=== PATIENT | female | born 1965 | race Caucasian/White ===

== ENCOUNTER 2019-10-26 15:33 | Emergency (ER) | payer SELFPAY ==
[2019-10-26 15:44] VITALS: BP 142/77; PULSE 74; RESP 16; TEMP 37.1; O2SAT 96; BMI 43.0
--- NOTE | 2019-10-26 16:04 | ED_ITS ---
HPI - Ear Problem General Chief complaint: Ear Stated complaint: swelling right side of her neck and jaw Time Seen by Provider: 10/26/19 15:57 Source: patient and family () Mode of arrival: Ambulatory Limitations: no limitations History of Present Illness HPI Narrative: This is a 54-year-old female comes emergency department complaint of swelling of the right side of her jaw just below in the neck region. Patient states that she has always noticed she has a little bit of a sharp pain when she eats something sour. She thought that was typical but found out recently that it is not. Last 24 hours she has noted pain with chewing and eating. She states last night was pretty intense today has been mild. Today her and her both noticed swelling of the cheek area and neck. Her states it looked mostly like the lower cheek just above the mandible. She feels like it is a little bit behind and below. She states no fevers. She has kind of chronic nasal congestion secondary to being allergic to tobacco smoke and a chronic tobacco smoke user. Patient has no right ear pain occasionally has left ear discomfort and has had some chronic infections in the left ear before. She states last night chewing the [place] was incredibly uncomfortable but even eating regular food has been painful. She states it does not feel like it is in the jaw or the bone but more in the soft tissue behind it just below the ear and next to the angle of the mandible. Patient states the swelling has been improving. She has not had any discharge or fould taste in her mouth that she is appreciated. Patient has not had these symptoms in the past. She denies any change to voice. She denies any swelling in her airway or tightness. She denies any other chest congestion or shortness of breath. Related Data Home Medications Medication Instructions Recorded Confirmed Dayquil 1 dose PO PRN PRN 10/26/19 10/26/19 ibuprofen 200 mg PO PRN PRN 10/26/19 10/26/19 meloxicam [Mobic] 15 mg PO BID 10/26/19 10/26/19 Previous Rx's Medication Instructions Recorded clindamycin HCl 300 mg PO QID #30 cap 10/26/19 Allergies Allergy/AdvReac Type Severity Reaction Status Date / Time Penicillins AdvReac Intermediate Verified 10/26/19 16:31 Review of Systems Review of Systems ROS Unobtainable: All systems reviewed & are unremarkable except as noted in HPI and below Patient History Social History Smoking Status: Current every day smoker Smoking Status: Current every day smoker tobacco type: cigarettes Alcohol type: wine Substance Use Type: does not use Exam Narrative Exam Narrative: GEN: well nourished, well appearing female, alert and oriented x 3, patient appears to be in mild distress. HEENT: Atraumatic, pupils are equal round reactive to light, extraocular movements are intact, nares are clear, TMs bilaterally with small amount of fluid, no erythem or bulge or TM. No pain with movement of the pinna. Throat is clear without any exudates, erythema, tonsillar enlargement or uvular deviation, patient does have some mild swelling of the right cheek and upper neck, no erythema or skin changes. I am unable to palpate any mass, nodules or fluid collections or fluctuance. Patient is nontender to touch. No thyromegaly appreciated. No dental caries noted. No purulent drainage from salivary. HEART: Regular rate and rhythm without murmur, clicks, rubs. LUNGS:Lungs clear to auscultation, no wheezes, rales, crackles, chest moves symmetrically ABD:bowel sounds normal, soft, non-tender, no guarding, rebound, rigidity, no masses noted, no hepatosplenomegaly MSCL: Non-tender, no muscle atrophy, muscles strength 5/5 upper and lower extrem ities, full range of motion, normal gait NEURO:CN 2-12 intact, sensation normal SKIN: No erythema, no rash or skin changes. Initial Vital Signs Initial Vital Signs: Vital Signs Temperature 98.7 F 10/26/19 15:44 Pulse Rate 74 10/26/19 15:44 Respiratory Rate 16 10/26/19 15:44 Blood Pressure 142/77 H 10/26/19 15:44 Pulse Oximetry 96 10/26/19 15:44 Course Orders Ordered: ED Orders 10/26/19 16:16 US soft tissue head and neck Stat 10/26/19 16:48 Basic Metabolic Panel Stat Complete Blood Count AUTO DIFF Stat Discontinued Medications Sodium Chloride (Normal Saline 0.9%) 1,000 mls @ 1,000 mls/hr IV BOLUS ONE Stop: 10/26/19 19:04 Vital Signs Vital signs: Vital Signs - 8 hr 10/26/19 15:44 10/26/19 18:39 Temperature 98.7 F Pulse Rate 74 69 Respiratory Rate 16 16 Blood Pressure 142/77 H Blood Pressure [Left Wrist] 128/72 Pulse Oximetry 96 98 Medical Decision Making Lab Data Result diagrams: 10/26/19 16:48 10/26/19 16:48 Labs: Lab Results 10/26/19 10/26/19 Range/Units 16:48 16:48 WBC 5.4 (4.5-11.0) X10^3/uL RBC 3.95 L (4.0-5.2) X10^6/uL Hgb 12.8 (12.0-16.0) g/dL Hct 37.0 (36-46) % MCV 93.6 (80-100) fL MCH 32.3 (26-34) PG MCHC 34.5 (30-36) % RDW 12.8 (11.6-14.8) % Plt Count 261 (150-400) X10^3/uL Neut % (Auto) 53.6 (50-75) % Lymph % (Auto) 33.5 (25-40) % [place] % (Auto) 10.0 (3-14) % Eos % (Auto) 2.2 (2-4) % Baso % (Auto) 0.7 (0-2) % Neut # (Auto) 2900 (1054-6673) /uL Lymph # (Auto) 1800 (8957-4642) /uL Wilcox # (Auto) 500 (0-900) /uL Eos # (Auto) 100 (0-450) /uL Baso # (Auto) 0 (0-100) /uL Sodium 139 (137-145) mmol/L Potassium 4.0 (3.4-5.1) mmol/L Chloride 103 (98-107) mmol/L Carbon Dioxide 27 (22-32) mmol/L BUN 17 (7-17) mg/dL Creatinine 0.70 (0.52-1.04) mg/dL Estimated GFR > 60.0 (>60) mL/min BUN/Creatinine Ratio 24.3 H (6-22) Glucose 103 H (70-100) mg/dL Calcium 9.7 (8.4-10.2) mg/dL MDM Narrative Medical decision making narrative: Discussed with patient differential includes dental, TMJ, mass, thyroid but also possibly sialadenitis or stone potentially in the duct. Patient's tender over the area of the parotid gland but some of his symptoms are suspicious. Patient does have changes on ultrasound. No major changes in her lab work. We discussed that patient could have CT imaging by she is comfortable deferring. Suspected she could have a stone may have passed as her swelling resolved on its own although she does still have some mild swelling plan to start her on antibiotics for likely infection versus stone. Patient has not noticed any dryness. Plan for have her to return in 24 hours if she is not improving and I do want her to follow up with ENT in the next week because she has had pain intermittently over the last several years for further evaluation. Discharge Plan Departure Patient Disposition: Home Clinical Impression: Infection of submandibular gland Discharge Date/Time: 10/26/19 18:45 Activity Restrictions/Additional Instructions: Follow-up with ENT in the next week for recheck. Call for an appointment. Your ultrasound today shows inflammation of the submandibular gland, I would recommend having follow-up with ENT for recheck as your symptoms improve as you had pain over several years in that area. Take antibiotics until they are completely gone. Suck on lemon drops or tart candies 4 times daily to stimulate salivary production. You may take ibuprofen up to 800 mg every 8 hours as needed for pain. You may also take Tylenol up to a 1000 mg every 8 hours as needed for pain. If you have worsening symptoms, fevers greater 100.4 F, rapidly worsening swelling of your face, cheek, neck, hoarseness, difficulty breathing, lightheadedness, passing out, persistent vomiting new chest pain or shortness of breath or other new or concerning symptoms return to the ER. Prescriptions: New clindamycin HCl 300 mg capsule 300 mg PO QID Qty: 30 RF: 0 No Action meloxicam [Mobic] 15 mg Tablet 15 mg PO BID RF: 0 ibuprofen 200 mg Tablet 200 mg PO PRN PRN (Reason: pain) RF: 0 Dayquil 1 dose PO PRN PRN (Reason: Cold Symptoms) RF: 0 Referrals: Brody Mcgowan MD [Physician] -
--- NOTE | 2019-10-26 16:16 | DI.US.S_ITS ---
PROCEDURE: US SOFT TISSUE HEAD AND NECK INDICATIONS: SWELLING RIGHT CHEEK BILATERAL MANDIBLE.PAIN WITH.SIALADENIT TECHNIQUE: Real-time scanning was performed of the neck region of interest, with image documentation. COMPARISON: None. FINDINGS: Mild hyperemia can be seen at the area of clinical concern involving right angle of the mandible. This is believed to correspond to the right submandibular gland, which is more hyperechoic and larger than the left. IMPRESSION: Potential inflammatory change of the right submandibular gland. If clinically appropriate, please consider a dedicated neck CT with contrast for further evaluation. Dictated by: Michael Borrego M.D. on 10/26/2019 at 17:35 Approved by: Michael Borrego M.D. on 10/26/2019 at 17:37
[2019-10-26 17:24] LABS: Add Manual Diff / Slide Review NO; Basophils Absolute Auto 0 /uL (0-100); Basophils Percent Auto 0.7 % (0-2); Eosinophils Absolute Auto 100 /uL (0-450); Eosinophils Percent Auto 2.2 % (2-4); Hemoglobin 12.8 g/dL (12.0-16.0); Lymphocytes Absolute Auto 1800 /uL (1100-4500); Lymphocytes Percent Auto 33.5 % (25-40); Mean Corpuscular HGB Conc 34.5 % (30-36); Mean Corpuscular Hemoglobin 32.3 PG (26-34); Mean Corpuscular Volume 93.6 fL (80-100); Monocytes Absolute Auto 500 /uL (0-900); Neutrophils Absolute Auto 2900 /uL (1500-7000); Neutrophils Percent Auto 53.6 % (50-75); Platelet Count 261 X10^3/uL (150-400); Red Blood Cell Count 3.95 X10^6/uL (4.0-5.2); Red Cell Distribution Width 12.8 % (11.6-14.8); White Blood Cell Count 5.4 X10^3/uL (4.5-11.0)
[2019-10-26 17:38] LABS: BUN Creatinine Ratio 24.3 (6-22); Blood Urea Nitrogen 17 mg/dL (7-17); Calcium 9.7 mg/dL (8.4-10.2); Carbon Dioxide 27 mmol/L (22-32); Chloride 103 mmol/L (98-107); Estimated Glomerular Filt Rate > 60.0 mL/min (>60); Glucose 103 mg/dL (70-100); HEMOLYSIS < 15 (0-50); Sodium 139 mmol/L (137-145)
[2019-10-26 18:39] VITALS: BP 128/72; PULSE 69; RESP 16; O2SAT 98
== END 2019-10-26 18:45 | disposition home or self-care (01) ==
PROVIDERS: Emergency Provider Emergency Medicine; Family Provider Emergency Medicine
DX: K11.20 Sialoadenitis, unspecified (principal)
CPT/HCPCS: 36415; 76536; 80048; 85025; 99283; 99284